=== PATIENT | male | born 1970 | race Caucasian/White ===

== ENCOUNTER → 2020-07-22 | Day surgery (SDC) | payer OTHER ==
[~2020-07-22] MED LIST: 8 HOUR650 MG PO; COZAAR50 MG PO; GLUCOSAMINE H1500 MG PO; NAPROXEN250 MG PO; ZYRTEC10 MG PO
[2020-07-22 08:16] LABS: HCT 41.5 % (42.0-52.0); HGB 14.5 g/dl (13.2-18.0); MCHC 34.9 g/dL (32.0-36.0); MCV 94.3 fL (78.0-100.0); MPV 9.8 fL (6.0-9.5); RBC 4.4 M/uL (4.70-6.00); RDW 11.3 % (11.5-14.0); WBC 5.6 K/uL (4.0-10.5)
[2020-07-22 08:29] LABS: ALBUMIN 4.4 g/dL (3.4-5.0); BILIRUBIN - TOTAL 1.6 mg/dL (0.2-1.0); BUN/CREAT RATIO (CALC) 13.5 RATIO; CREATININE 0.74 mg/dL (0.67-1.17); GLOBULIN (CALCULATION) 2.9 g/dL; POTASSIUM 3.9 mmol/L (3.5-5.1); TOTAL PROTEIN 7.3 g/dL (6.4-8.2)
== END | disposition home or self-care (01) ==
LOC: FAS 07:25
PROVIDERS: Surgery
DX: K64.8 Other hemorrhoids (principal); J30.9 Allergic rhinitis, unspecified; Z86.16 Personal history of COVID-19; Z88.8 Allergy status to other drugs, medicaments and biological substances; Z83.3 Family history of diabetes mellitus; Z98.890 Other specified postprocedural states; Z84.89 Family history of other specified conditions
CPT/HCPCS: 36415; 80053; J1100; J2250; J2704; J7120